=== PATIENT | female | born 1970 | race Caucasian/White ===

== ENCOUNTER 2022-08-07 14:13 | Outpatient (CLI) | payer OTHER ==
--- NOTE | 2022-08-07 17:04 | SLEEP CARE CONSULTATION ---
Information from patient questionnaire entered by Terry Garcia. I have reviewed and concur with the information entered by Trery Garcia. This document represents the service I personally performed and the decisions made by me, Mesha Green MD, [facility]. History of Present Illness Service Date and Time: 08/07/2022 1413 Reason for Visit: New patient Chief Complaint: reports: Insomnia, Unrefreshed sleep, Snoring, Fatigue, Frequent awakenings at night Date of Onset: 5YRS Usual bedtime: 8-10PM Time it takes to fall asleep: WITH MEDICATION 1-2 HRS Snores at night: Yes Observed to quit breathing while asleep: Yes Sleeps alone due to snoring: Yes Number of times waking at night: 2 Reasons for waking at night: reports: Snoring, Gasping for air, Bathroom, Other (NOISE) Toss, Turn, or Twitch while sleeping: Yes Recalls having dreams: No Feels refreshed in the morning: No Morning headache: Yes Sleepy or fatigued during the day: Yes Ever fallen asleep while driving: No Takes day naps: No Dreams during day naps: No Prior sleep studies: No Additional HPI information: I have the pleasure of seeing Ms. Franklin today regarding the possibility of her having obstructive sleep apnea. As you know, she is a 51-year-old lady who complains of insomnia, unrefreshed sleep, loud snore, observed apneas, and persistent fatigue. The patient tells me that she normally goes to bed around 8 - 10 pm, and it takes her approximately 1 2 hours to fall asleep with zolpidem 10 mg. She has been told that she snores loudly and irregularly at night. She has also been observed to stop breathing in her sleep. Her occasionally has to sleep separately. She can recall waking up on the average of 2 - 3 times during the night. Most of the time she wakes up because of having to use the bathroom. She has awakened occasionally because of her own snoring, choking, and having to gasp for air. There is a lot of tossing and turning in her sleep. No somniloquy (sleep talking) or somnambulism (sleep walking). Generally, she can recall having dreams. In the morning she usually gets up out of the bed around 4 - 5 a.m. not feeling refreshed nor rested. She usually does not have a morning headache. During the day she complains of feeling fatigued. Her score on [place] Sleepiness Scale is 8 out of 24. She never has fallen asleep while driving nor has had any accident due to sleepiness. She usually does not take naps during the day. - Parasomnia Symptoms Ever been unable to move upon waking from sleep: No Walks in sleep: No Talks in sleep: Yes Ever acted out dreams in sleep: No Ever felt weak in the knees when startled or emotional: No Bothered by creepy, crawly, restless sensations in legs: Yes Problems with memory or concentration: No Subjective Initial [place] Sleepiness Scale score: 8 (08/04/22) Past Medical History Past Medical History: reports: Anxiety, Depression Social History The patient's occupation is a [employer]. Patient is and lives in [place]. Have you smoked in the past 12 months: No Alcohol use: Yes Alcohol amount and frequency: 1-2 DRINKS 1 X MONTH Caffeine use: Yes Caffeine amount and frequency: 1-3 CUPS COFFEE EVERYDAY Family History Family Hx Sleep Apnea: Father: Snoring, Sleep apnea - Treated, Sibling: Snoring, Sleep apnea - Treated, Grandparent: Snoring Allergies and Home Medications Known drug allergies: No Drug allergies reviewed: Yes Home medication list reviewed: Yes Review of Systems Cardiovascular: reports: chest pain, have to sleep sitting up Respiratory: denies: shortness of breath, wheeze, sputum production, chronic cough, other Gastrointestinal: denies: heartburn, difficulty swallowing, nausea, vomitting, diarrhea, abdominal pain, other Urinary: denies: incontinence, frequency, urgency, impotence, other Neurological: reports: headaches Psychiatric: reports: anxiety, depression Ear/Nose/Throat: denies: nasal congestion, sinus problems, nose bleeds, dry mouth/throat, hoarseness, injury to nose, tonsillectomy, wisdom teeth removed, other Endocrine: denies: thyroid disease, history of goiter, sluggishness, too hot or cold, excessive thirst, increased appetite, increased urination, unexplained weakness, other Musculoskeletal: denies: joint pain, neck pain, back pain, joint swelling, muscle pain or cramping, mobility problems, other Immunologic: denies: sneezing, rash, itching, allergies to food or environment, other Physical Exam Vital signs obtained and entered by: TERRY Lord MA Blood Pressure: 114/76 (left arm) Cuff size: regular Heart Rate: 88 O2 Saturation: 97 Height: 5 ft 10 in Weight: 253 lb 3.2 oz Body Mass Index: 36.3 BMI Classification: Obese Neck circumference: 15.5 HEENT: No craniofacial malformation Nostrils: patent to airflow Turbinates: normal Septum: midline Mouth and throat: narrow oropharynx Soft palate: long Hard palate: normal Uvula: normal Uvula visualization: 25% Mallampati Class III Tonsils: small Chin and jaw: normal size and position Neck: normal w/o lymphadenopathy or thyromegaly Heart: regular rate and rhythm Lungs: clear bilaterally Extremities: no edema or clubbing Neurologic: intact Impression and Plan IMPRESSION: 1. Obstructive Sleep Apnea-Hypopnea Syndrome, as evident by history of loud and irregular snoring, observed cessation of breath while asleep, frequent awakenings during the night, nocturnal choking, unrefreshed sleep, and persistent fatigue. Narrow oropharynx and obesity are common predisposing factors for obstructive sleep apnea-hypopnea syndrome. I recommend proceeding to polysomnography to confirm the diagnosis and to assess severity. If she has significant sleep disordered breathing, a manual CPAP titration study will also be performed to find the optimal treatment pressure. I informed the patient of what the sleep studies involve and after some discussion, she agreed to proceed. Plan: 1. Schedule polysomnography and return in 1 to 2 weeks after the study to discuss result and initiate therapy. 2. Avoid long distance driving or when feeling sleepy. 3. Avoid alcohol, sedative, and muscle relaxant around bedtime. 4. Attempt to lose weight. Counseling Topics: Weight control Follow up with Sleep Care in: 1-2 months Visit Type: In Office Time Spent with Patient (minutes): 15 Provider Statement: I spent 100% of the Face to Face Visit with the patient with greater than 50% spent counseling the patient and coordination of care.
[2022-08-07 17:05] VITALS: BP 114/76
== END 2022-08-07 14:14 | disposition home or self-care (01) ==
LOC: SC 14:13 → MERGE 14:40
PROVIDERS: ATTEND Internal Medicine Pulmonary Disease
DX: R06.83 Snoring (principal); R06.81 Apnea, not elsewhere classified; G47.8 Other sleep disorders; R53.83 Other fatigue; E66.9 Obesity, unspecified; Z68.36 Body mass index [BMI] 36.0-36.9, adult
CPT/HCPCS: 99202; 99212

== ENCOUNTER 2022-08-15 07:28 | Outpatient (CLI) | payer OTHER ==
[2022-08-15 11:44] LABS: BASOPHILS # (AUTO) 0.1 10^3/uL (0.0-0.1); EOSINOPHILS # (AUTO) 0.1 10^3/uL (0.0-0.7); EOSINOPHILS % (AUTO) 1.3 %; HGB - HEMOGLOBIN 12.7 g/dL (12.0-16.0); LYMPHOCYTES # (AUTO) 3.1 10^3/uL (1.5-3.5); LYMPHOCYTES % (AUTO) 50.8 %; MEAN CORPUSCULAR VOLUME 90.3 fL (81.0-99.0); MEAN PLATELET VOLUME 11.2 fL (7.9-10.8); MONOCYTES # (AUTO) 0.7 10^3/uL (0.0-1.0); MONOCYTES % (AUTO) 10.9 %; NEUTROPHILS # (AUTO) 2.2 10^3/uL (1.5-6.6); NEUTROPHILS % (AUTO) 35.8 %; PLT - PLATELET COUNT 311 10^3/uL (130-450); RED BLOOD COUNT 4.54 10^6/uL (4.20-5.40); RED CELL DISTRIBUTION WIDTH 13.7 % (12.0-15.0); WHITE BLOOD COUNT 6.1 x10^3/uL (4.8-10.8)
[2022-08-15 12:08] LABS: ALBUMIN 4.5 g/dL (3.2-5.5); ALBUMIN/GLOBULIN RATIO 1.6 (1.0-2.2); ALKALINE PHOSPHATASE 90 IU/L (42-121); ALT ALANINE AMINOTRANSFERASE 57 IU/L (10-60); AST ASPARTATE AMINOTRANSFERASE 37 IU/L (10-42); BILIRUBIN,TOTAL 0.4 mg/dL (0.2-1.0); BUN - BLOOD UREA NITROGEN 20 mg/dL (6-20); CALCIUM 9.5 mg/dL (8.5-10.3); CARBON DIOXIDE - CO2 28 mmol/L (21-32); CHLORIDE 105 mmol/L (101-111); CHOL/HDL RATIO 5.2 (<4.4); CHOLESTEROL 225 mg/dL; CREATININE 0.9 mg/dL (0.4-1.0); GFR - MDRD 65 (>89); GLUCOSE 109 mg/dL (70-100); HDL CHOLESTEROL 43 mg/dL; LDL CHOLESTEROL,CALCULATED 147 mg/dL; LDL/HDL RATIO 3.4 (<4.4); SODIUM 140 mmol/L (135-145); TOTAL PROTEIN 7.4 g/dL (6.7-8.2); TRIGLYCERIDES 176 mg/dL; VLDL CHOLESTEROL 35 mg/dL
[2022-08-15 12:19] LABS: THYROID STIMULATING HORMONE 3.34 uIU/mL (0.34-5.60)
[2022-08-15 12:27] LABS: ESTIMATED AVERAGE GLUCOSE 128 mg/dL (70-100); HEMOGLOBIN A1c% 6.1 % (4.27-6.07)
== END 2022-08-15 07:29 | disposition home or self-care (01) ==
LOC: LAB.N 07:28
PROVIDERS: ATTEND Nurse Practitioner
DX: R73.03 Prediabetes (principal); R53.83 Other fatigue; Z13.220 Encounter for screening for lipoid disorders
CPT/HCPCS: 36415; 80053; 80061; 83036; 83721; 84443; 85025

== ENCOUNTER 2022-08-25 19:27 | Outpatient (CLI) | payer OTHER | END 2022-08-25 19:28 | disposition home or self-care (01) | LOC: SC 19:27 | PROVIDERS: ATTEND Internal Medicine Pulmonary Disease | DX: G47.33 Obstructive sleep apnea (adult) (pediatric) (principal); G47.61 Periodic limb movement disorder; E66.9 Obesity, unspecified; Z68.36 Body mass index [BMI] 36.0-36.9, adult | CPT/HCPCS: 95810 ==

== ENCOUNTER 2022-09-15 09:11 | Outpatient (CLI) | payer OTHER ==
[2022-09-15 09:57] VITALS: BP 124/78
--- NOTE | 2022-09-15 09:57 | SLEEP CARE CONSULTATION ---
Information from patient questionnaire entered by Jeri Garcia. I have reviewed and concur with the information entered by Jeri Garcia. This document represents the service I personally performed and the decisions made by , Alexus Sullivan ARNP. History of Present Illness Service Date and Time: 09/15/2022 0911 Initial [place] Sleepiness Scale score: 8 (08/04/22) Current [place] Sleepiness Scale score: 3 () Additional HPI information: RADHA SHULTZ returns for follow up and results of the recently performed polysomnography. I explained the pathophysiology behind obstructive sleep apnea. We then spent quite a bit of time discussing different treatment options. For mild obstructive sleep apnea, surgery and oral appliance are alternatives to nasal CPAP therapy but in moderate or severe cases, nasal CPAP is the most effective and reliable treatment. Because apnea is primarily in supine position, then positional management therapy could be effective. Methods discussed such as positioning with pillows to prevent supine sleep. I reviewed the impact of weight changes on sleep apnea and strongly recommended losing weight. After some discussion, the patient opted to go with the nasal CPAP therapy. Nasal autoCPAP set at 4-15 cmH20 will be ordered with rationale explained. A manual titration study will be ordered if unable to find optimal pressure with office adjustments. I explained how CPAP machine works and what to expect when using the machine. Using CPAP every night in order to get used to it was emphasized. Patient advised to put CPAP mask on before getting into bed so as not to fall asleep without CPAP. To assist acclimation to CPAP use, it could also be used for a short time during day while reading or watching TV. The patient was instructed to call the CPAP supplier to discuss any mechanical problem that may occur. If the mask given is uncomfortable or is difficult to keep on through the night even with adjustment, contact the CPAP supplier as many will replace with another mask style if notified before 30 days. If snoring or perceives is not getting enough air or too much air from the machine, notify this office. Patient counseled not drink alcohol less than 4 hours before bedtime as it can increase snoring and apnea. Patient was cautioned about risks of drowsy driving until sleepiness symptoms resolve. Patient denies drowsy driving. Sleep Study - Results Type of Sleep Study: Polysomnography (COMPLETED 08/25/22) Prior sleep studies: No Polysomnography/Home Sleep Study results: IMPRESSION: The quality of the study is good. The patient had normal sleep efficiency. The sleep architecture was abnormal for sleep fragmentation and reduced amount of time spent in REM and slow wave sleep (N3). Respiratory monitoring showed moderate obstructive sleep apnea-hypopnea (AHI = 18.4) associated with frequent arousals, oxyhemoglobin desaturation and mild hypoxia (huma oxygen saturation of 80%). The respiratory events occurred independently of sleep stage and body position (supine AHI = 20.0; non- supine = 18.01). Snore was moderate in intensity. There was severe periodic leg movement of sleep contributing to the sleep fragmentation. Cardiac rhythm was normal sinus rhythm without significant arrhythmia. No abnormal behavior (parasomnia) observed during the night. Allergies and Home Medications Drug allergies reviewed: Yes (NKDA) Home medication list reviewed: Yes (no changes) Review of Systems Review of systems same as previous: Yes (no changes) Physical Exam Vital signs obtained and entered by: JERI Lord MA Blood Pressure: 124/78 (LEFT ARM) Cuff size: regular Heart Rate: 78 O2 Saturation: 97 Height: 5 ft 10 in Weight: 253 lb 12.8 oz Body Mass Index: 36.3 BMI Classification: Obese Impression and Plan 1. Obstructive Sleep Apnea-Hypopnea Syndrome, moderate, with lowest oxygen saturation of 80%. Obviously this is the cause of the patients symptoms of unrefreshed sleep, and excessive daytime sleepiness. Positive pressure therapy could benefit anxiety and depression. As mentioned above, the patient will be started on nasal autoCPAP therapy with pressure set at 4-15 cmH2O. Compliance guidelines also reviewed. A copy of compliance guidelines will be given for reference at check out. Because the apnea is more severe supine, I instructed to avoid sleeping supine using pillow positioning until able to start CPAP use. 2. Periodic limb movement, severe, that did contribute to the fragmentation of the patients sleep. Periodic limb movement of sleep (PLMS) is characterized by episodes of repetitive limb movements that occur during sleep and usually involve the lower limbs. The etiology is unknown. Caffeine can aggravate PLMS and should be avoided. Sleep hygiene methods can also improve sleep as well as lifestyle changes such as regular exercise. Patient was advised that no treatment is needed at this time. If symptoms increase, then further evaluation is indicated. 3. Obesity, unspecified. Currently patients BMI is 36.3. Obesity increases the risk of apnea, CPAP pressure requirements and overall health risks especially cardiovascular and diabetes. Thus patient is advised to lose weight. * Nasal auto CPAP therapy, pressure at 4-15 cm H2O. * Attempt to lose weight. * Avoid alcohol consumption near bedtime. * Avoid supine sleep until using CPAP. * The patient is again cautioned about driving until sleepiness completely resolves. * Return one month after CPAP obtained. I will assess response to therapy and compliance at that time. Counseling Topics: Weight loss health impact Visit Type: In Office Time Spent with Patient (minutes): 22 Provider Statement: I spent 100% of the Face to Face Visit with the patient with greater than 50% spent counseling the patient and coordination of care.
== END 2022-09-15 09:12 | disposition home or self-care (01) ==
LOC: SC 09:11
PROVIDERS: ATTEND Nurse Practitioner Family
DX: G47.33 Obstructive sleep apnea (adult) (pediatric) (principal); G47.61 Periodic limb movement disorder; E66.9 Obesity, unspecified; Z68.36 Body mass index [BMI] 36.0-36.9, adult
CPT/HCPCS: 99212; 99213

== ENCOUNTER 2023-06-13 07:37 | Outpatient (CLI) | payer OTHER ==
[2023-06-13 11:49] LABS: BASOPHILS # (AUTO) 0.1 10^3/uL (0.0-0.1); BASOPHILS % (AUTO) 0.9 %; EOSINOPHILS # (AUTO) 0.1 10^3/uL (0.0-0.7); EOSINOPHILS % (AUTO) 1.1 %; HCT - HEMATOCRIT 42.9 % (37.0-47.0); HGB - HEMOGLOBIN 13.4 g/dL (12.0-16.0); LYMPHOCYTES # (AUTO) 2.5 10^3/uL (1.5-3.5); LYMPHOCYTES % (AUTO) 46.4 %; MEAN CORPUSCULAR HEMOGLOBIN 27.7 pg (27.0-31.0); MEAN CORPUSCULAR HGB CONC 31.2 g/dL (32.0-36.0); MEAN CORPUSCULAR VOLUME 88.8 fL (81.0-99.0); MEAN PLATELET VOLUME 10.8 fL (7.9-10.8); MONOCYTES # (AUTO) 0.5 10^3/uL (0.0-1.0); MONOCYTES % (AUTO) 8.6 %; NEUTROPHILS # (AUTO) 2.3 10^3/uL (1.5-6.6); NEUTROPHILS % (AUTO) 42.8 %; PLT - PLATELET COUNT 337 10^3/uL (130-450); RED BLOOD COUNT 4.83 10^6/uL (4.20-5.40); RED CELL DISTRIBUTION WIDTH 13.2 % (12.0-15.0); WHITE BLOOD COUNT 5.3 x10^3/uL (4.8-10.8)
[2023-06-13 12:03] LABS: ALBUMIN 4.8 g/dL (3.2-5.5); ALBUMIN/GLOBULIN RATIO 1.5 (1.0-2.2); ALKALINE PHOSPHATASE 103 IU/L (42-121); ALT ALANINE AMINOTRANSFERASE 72 IU/L (10-60); AST ASPARTATE AMINOTRANSFERASE 45 IU/L (10-42); BILIRUBIN,TOTAL 0.3 mg/dL (0.2-1.0); BUN - BLOOD UREA NITROGEN 21 mg/dL (6-20); CALCIUM 9.7 mg/dL (8.5-10.3); CARBON DIOXIDE - CO2 28 mmol/L (21-32); CHLORIDE 103 mmol/L (101-111); CHOL/HDL RATIO 4.5 (<4.4); CHOLESTEROL 235 mg/dL; GFR - MDRD 58 (>89); GLUCOSE 103 mg/dL (74-104); HDL CHOLESTEROL 52 mg/dL; LDL CHOLESTEROL,CALCULATED 153 mg/dL; LDL/HDL RATIO 2.9 (<4.4); POTASSIUM 4.3 mmol/L (3.5-4.5); SODIUM 138 mmol/L (135-145); TOTAL PROTEIN 7.9 g/dL (6.4-8.9); TRIGLYCERIDES 151 mg/dL (48-352); VLDL CHOLESTEROL 30 mg/dL
[2023-06-13 12:11] LABS: ESTIMATED AVERAGE GLUCOSE 126 mg/dL (70-100)
[2023-06-13 12:17] LABS: THYROID STIMULATING HORMONE 2.03 uIU/mL (0.34-5.60)
== END 2023-06-13 07:38 | disposition home or self-care (01) ==
LOC: LAB.N 07:37
PROVIDERS: ATTEND Nurse Practitioner
DX: K76.0 Fatty (change of) liver, not elsewhere classified (principal); Z13.220 Encounter for screening for lipoid disorders; R73.03 Prediabetes; R53.83 Other fatigue
CPT/HCPCS: 36415; 80053; 80061; 83036; 83721; 84443; 85025

== ENCOUNTER 2024-03-25 10:31 | Outpatient (CLI) | payer OTHER ==
--- NOTE | 2024-03-26 08:46 | XRAY Report ---
PROCEDURE: Knee 4+V RT INDICATIONS: RIGHT KNEE PAIN TECHNIQUE: 4 views of the knee(s) were acquired. COMPARISON: None. FINDINGS: Bones: No fractures or dislocations. Mild tricompartmental osteoarthritis is seen with joint space narrowing, subchondral sclerosis and small marginal osteophyte formation. No significant patellar sub luxation. No suspicious bony lesions. Soft tissues: No knee joint effusion. No suspicious soft tissue calcifications or masses. IMPRESSION: No acute bony abnormality. Mild tricompartmental osteoarthritis. No significant joint effusion. Reviewed by: Wu Woo MD on 03/26/2024 8:44 AM PDT Approved by: Wu Woo MD on 03/26/2024 8:44 AM PDT Station ID: [id number]
== END 2024-03-25 10:32 | disposition home or self-care (01) ==
LOC: DI 10:31
PROVIDERS: ATTEND Nurse Practitioner
DX: M17.11 Unilateral primary osteoarthritis, right knee (principal)

== ENCOUNTER 2024-05-04 19:13 | Emergency (ER) | payer OTHER ==
[2024-05-04] MEDS: lidocaine 1% 20 ML MDV SUBQ ONE (22:03)
--- NOTE | 2024-05-04 22:39 | ED Physician Documentation ---
History of Present Illness - Stated complaint Stated Complaint: RT ANKLE WOUND/LACS - Chief complaint Chief Complaint: Laceration - History obtained from History obtained from: Patient, Family - History of Present Illness Timing: Prior to arrival - Additonal information Additional information: Shortly prior to arrival patient was putting away glass plates when 1 she dropped and broke and she cut her right ankle. Patient denies any feelings of foreign body send she also sliced the outside of her right thigh but denies any persistent bleeding. Patient denies any feelings of foreign body no numbness or tingling to extremities. Patient tried to go to sleep at persistent bleeding to her right ankle so she came to emergency department. Patient is not up-to-date on her tetanus shot. PD PAST MEDICAL HISTORY - Past Medical History Past Medical History: Yes Psych: Anxiety, Other Other Past Medical History: Sleep disorder - Past Surgical History Past Surgical History: No - Present Medications Home Medications: Ambulatory Orders Medication Instructions Recorded Confirmed Hormone Med 09/15/22 Zolpidem [Ambien] See Rx Instructions .ROUTE .COMPLEX 09/15/22 05/04/24 cloNIDine [Catapres] See Rx Instructions .ROUTE .COMPLEX 09/15/22 05/04/24 Gabapentin [Neurontin] 100 mg PO TID 05/04/24 05/04/24 - Allergies Allergies/Adverse Reactions: Allergies Allergy/AdvReac Type Severity Reaction Status Date / Time No Known Drug Allergies Allergy Verified 05/04/24 20:40 - Social History Does the pt smoke?: No Smoking Status: Never smoker Does the pt drink ETOH?: Yes ETOH Use: Wine Does the pt have substance abuse?: No - Immunizations Immunizations are current?: Yes - POLST Patient has POLST: No PD ED PE NORMAL - Vitals Vital signs reviewed: Yes - General General: Alert and oriented X 3 - HEENT HEENT: Atraumatic - Neck Neck: Supple, no meningeal sign - Cardiac Cardiac: RRR, No murmur, No gallop, No rub - Respiratory Respiratory: No respiratory distress, Clear bilaterally - Derm Derm: Normal color, Other (Laceration approximately 3 cm noted to lateral portion of right ankle with persistent bleeding noted on examination. Bleeding not controlled by gauze placed on right ankle. Patient is noted to be neurovascularly intact distally good range of motion digits 1 through 5 with strength intact distal DP) Results - Vitals Vitals: Vital Signs - 24 hr 05/04/24 20:30 Temperature 36.9 C Heart Rate 99 Respiratory 16 Rate Blood Pressure 140/73 H O2 Saturation 99 Oxygen O2 Source Room air Procedures - Laceration (location) Lower extremity right Lateral Wound type: Linear Neurovascular status: Sensory intact, Motor intact, Vascular intact Tendon involvement: Tendon intact Anesthesia: Lidocaine 1% with epi Wound preparation: Irrigated copiously NS Skin layer closure: Nylon, Sutures - enter # (5) Other: Patient tolerated well, Dressing applied (Patient tolerated procedure well she did have some mild bleeding post 5 sutures placed Surgifoam was applied and patient monitored in ED no persistent bleeding noted patient's wound was wrapped with gauze and she tolerated this well.) PD Medical Decision Making - ED course ED course: Patient presents to the emergency department with right lateral ankle laceration. Patient sustained laceration when she dropped a plate and cut her r ight lateral ankle. Patient notes persistent bleeding on arrival. Vital stable on arrival. Physical exam shows laceration approximately 3 cm to the lateral right ankle active bleeding noted on arrival. Patient has good pulses intact distally good capillary refill and neurovascularly intact distally to digits 1 through 5. Discussed with patient we will place 5 sutures lidocaine with epinephrine was applied and see suture note above patient did require surgical foam to be applied she is monitored here in the emergency department no persistent bleeding after this was applied. Instructed patient to remove gauze wrap in 24 hours but if bleeding starts or persists at home she should return to emergency department. Patient will remain off ankle to prevent any worsening bleeding. Instructed patient to elevate ice ankle. She has crutches at home we will have her wheelchair and out to her car here from the emergency department. Instructed patient watch for any fevers discharge worsening pain and swelling she will have sutures removed in 7 to 10 days. Patient agreeable with plan. Departure - Departure Disposition: 01 Home, Self Care Clinical Impression: Laceration, Laceration of right ankle without foreign body Condition: Good Instructions: ED Laceration Sure Close Comments: You were seen here in the emergency department for your right ankle wound your workup here in the emergency department showed laceration to right ankle you received 5 stitches you need to follow-up with your PCP in 10 days to have the stitches removed. Keep leg elevated use crutches at home I offered to send here but you declined. Additionally elevate ice and watch for any redness swelling discharge fevers worsening pain numbness tingling or difficulty moving distal extremity. Return to the emergency department with any of the symptoms. Forms: PCP List
[2024-05-04] MEDS: TETANUS/DIPHTHERIA/PERTUSSIS 0.5 ML SYRINGE IM ONE (23:23)
[2024-05-04 23:39] VITALS: BP 135/90; O2SAT 97
== END 2024-05-04 23:37 | disposition home or self-care (01) ==
LOC: ED 19:13
DX: S91.011A Laceration without foreign body, right ankle, initial encounter (principal); W25.XXXA Contact with sharp glass, initial encounter; Z23 Encounter for immunization
CPT/HCPCS: 12002; 90471; 99283

== ENCOUNTER 2024-05-27 11:18 | Emergency (ER) | payer OTHER ==
[2024-05-27 11:40] VITALS: BP 126/108; O2SAT 100
--- NOTE | 2024-05-27 12:22 | ED Physician Documentation ---
PD HPI BACK PAIN - Stated complaint Stated Complaint: RT LEG/HIP PX - Chief complaint Chief Complaint: Back Pain - Additional information Additional information: 53-year-old female with history of osteoarthritis, chronic back pain, anxiety. Patient had a fall about 2 months ago and has been having severe lower back pain since then. She has a primary care provider and has been referred to a spinal specialist Dr. Torres and had a spinal MRI last night. Patient says that normally when she has these acute back pain flares she is able to have significant improvement of pain and symptoms with Toradol injection and steroid taper. Patient says that she has been on a steroid taper once and had alleviation of symptoms for about 2 weeks last steroid taper was about 2 to 3 weeks ago. She has no history of acute psychotic episodes and is not experiencing any suicidal homicidal ideation and does not have diabetes but does report that she has prediabetes. Patient says that she was working with physical therapy today and started experiencing severe lower back pain radiating to her right leg to the point where she is having a hard time ambulating. No incontinence of bowel or bladder. PD PAST MEDICAL HISTORY - Past Medical History Psych: Anxiety, Other Musculoskeletal: Chronic back pain - Past Surgical History Past Surgical History: No - Present Medications Home Medications: Ambulatory Orders Medication Instructions Recorded Confirmed Hormone Med 09/15/22 Zolpidem [Ambien] See Rx Instructions .ROUTE .COMPLEX 09/15/22 05/04/24 cloNIDine [Catapres] See Rx Instructions .ROUTE .COMPLEX 09/15/22 05/04/24 Gabapentin [Neurontin] 100 mg PO TID 05/04/24 05/04/24 predniSONE [Deltasone] 20 mg PO [id number] #[id number] tab 05/27/24 - Allergies Allergies/Adverse Reactions: Allergies Allergy/AdvReac Type Severity Reaction Status Date / Time No Known Drug Allergies Allergy Verified 05/04/24 20:40 - Social History Does the pt smoke?: No Smoking Status: Never smoker Does the pt drink ETOH?: Yes Does the pt have substance abuse?: No - Immunizations Immunizations are current?: Yes - POLST Patient has POLST: No PD ED PE NORMAL - Vitals Vital signs reviewed: Yes - General General: Alert and oriented X 3, No acute distress, Well developed/nourished - HEENT HEENT: Atraumatic, PERRL - Neuro Neuro: Alert and oriented X 3, [place] operator 2-12 intact, No motor deficit, No sensory deficit, Normal speech Eye Opening: Spontaneous Motor: Obeys Commands Verbal: Oriented GCS Score: 15 - Free text exam Free text exam: Neck and back are without deformity, external skin changes, or signs of trauma. Curvature of the cervical, thoracic, and lumbar spine are within normal limits. Bony features of the shoulders and hips are of equal height bilaterally. Posture is upright, gait is smooth, steady, and within normal limits. No tenderness noted on palpation of the spinous processes. Spinous processes are midline. Cervical, thoracic, and lumbar paraspinal muscles are not tender and are without spasm. No discomfort is noted with flexion, extension, and [id number] rotation of the cervical spine, full range of motion is noted. Full range of motion including flexion, extension, and [id number]-wp-[id number] rotation of the thoracic and lumbar spine are noted and without discomfort. Straight leg raise test is positive on right side. Sensation to the upper and lower extremities is normal bilaterally. No clonus is noted. Creative Services Specialist strength is normal bilaterally. Dorsi/plantar flexion is normal bilaterally. Patient is able to ambulate Results - Vitals Vitals: Vital Signs - 24 hr 05/27/24 11:30 Temperature 37.0 C Heart Rate 86 Respiratory 18 Rate Blood Pressure 126/108 H O2 Saturation 100 Oxygen O2 Source Room air PD Medical Decision Making - ED course ED course: 53-year-old female presents emergency department for right hip pain. Patient says that in the past when this has been flared Toradol and steroid taper has been helpful. She already has care established with a spinal surgeon outpatient through [facility] and already had a get an MRI complete yesterday is just waiting for the results. I have prescribed her Toradol shot here in the emergency department and started her on a steroid taper here in the emergency department and a steroid prescription was sent to her preferred pharmacy. All questions have been answered patient safe for discharge return precautions given. Patient says that she is unable to ambulate due to the weakness of her right leg but I was able to see her ambulate into the emergency department and out with her . I do not believe there is any further emergent workup indicated at this time. Departure - Departure Disposition: 01 Home, Self Care Clinical Impression: Chronic back pain Qualifiers: Back pain location: low back pain Back pain laterality: right Sciatica presence: with sciatica Instructions: Prednisone tablets Prescriptions: predniSONE [Deltasone] 20 mg PO [id number] #[id number] tab Comments: Thank you for trusting us with your care I am sorry that you have been experiencing so many delays and issues with your back pain workup. We have started you on a steroid taper here in the emergency department we also gave you a Toradol injection here in the emergency department. I sent a prescription of steroid taper to [facility] make sure that you pick this up and start taking this tomorrow morning. Please follow-up with Dr. Torres about your MRI results I will call you if I am able to get a hold of them but keep in mind it can be tricky trying to get your MRI results as an outside facility. Let Dr. Torres know about your ER visit today and starting your steroid taper as well as your Toradol injection and please come back to the emergency department if you are having any worsening or acute severe symptoms. Discharge Date/Time: 05/27/24 12:57
[2024-05-27] MEDS: predniSONE 20 MG TABLET PO STA (12:36)
[2024-05-27] MEDS: KETOROLAC 30 MG/ML VIAL IM STA (12:36)
== END 2024-05-27 12:57 | disposition home or self-care (01) ==
LOC: ED 11:18
DX: M54.41 Lumbago with sciatica, right side (principal)
CPT/HCPCS: 96372; 99283; J7512